=== PATIENT | male | born 1975 | race Caucasian/White ===

== ENCOUNTER → 2017-04-12 | Outpatient (CLI) | payer OTHER ==
[~2017-04-12] MED LIST: ASCO500T16 PO; CLZ750 PO
[2017-04-12 14:41] LABS: BASO % 0.5 %; BASO ABS # 0.04 K/uL (0-0.2); COMPLETE YES; EOS % 1.5 %; IG% 0.4 %; LYMPH % 14.6 %; MEAN CELL VOLUME 90.2 fL (80-100); MEAN CORPUSCULAR HEMOGLOBIN 30.5 pg (25-34); MEAN CORPUSCULAR HGB CONC 33.9 g/dl (32-36); MONO % 5.8 %; NEUT % 77.2 %; PLATELET COUNT 283 K/uL (130-400); RED BLOOD COUNT 4.88 M/uL (4.7-6.1); WHITE BLOOD COUNT 8.21 K/uL (4.8-10.8)
[2017-04-12 15:12] LABS: ALT/SGPT 40 U/L (12-78); BLOOD UREA NITROGEN 12 mg/dl (7-18); BUN/CREATININE RATIO 13.8 (10-20); C-REACTIVE PROTEIN < 0.29 mg/dl (0-0.29); CALCIUM 9.2 mg/dl (8.5-10.1); CARBON DIOXIDE 29 mmol/L (21-32); CHLORIDE 106 mmol/L (98-107); CREATININE 0.86 mg/dl (0.60-1.40); GLUCOSE 99 mg/dl (70-99); POTASSIUM 3.7 mmol/L (3.5-5.1); SODIUM 141 mmol/L (136-145)
[2017-04-12 15:15] LABS: ALB/GLOB RATIO 1.2 (0.9-2); ALKALINE PHOSPHATASE 115 U/L (45-117); AST/SGOT 37 U/L (15-37)
== END | disposition home or self-care (01) ==
LOC: C.LAB1850 14:02
PROVIDERS: ATTEND Registered Nurse
DX: K51.30 Ulcerative (chronic) rectosigmoiditis without complications (principal)

== ENCOUNTER → 2017-10-02 | Outpatient (CLI) | payer BC ==
[2017-10-02 14:36] LABS: BASO % 0.3 %; BASO ABS # 0.02 K/uL (0-0.2); EOS % 1.3 %; EOS ABS # 0.09 K/uL (0-0.5); HEMATOCRIT 44.5 % (42-52); HEMOGLOBIN 15.3 g/dL (14.0-18.0); IG# 0.01 K/uL (0.00-0.02); LYMPH % 13.2 %; MEAN CELL VOLUME 90.3 fL (80-100); MEAN CORPUSCULAR HGB CONC 34.4 g/dl (32-36); MONO ABS # 0.34 K/uL (0.11-0.59); NEUT % 80.1 %; NEUT ABS # 5.44 K/uL (1.4-6.5); PLATELET COUNT 266 K/uL (130-400); RED CELL DISTRIBUTION WIDTH CV 12.8 % (11.5-14.5); RED CELL DISTRIBUTION WIDTH SD 42.2 fL (36.4-46.3)
[2017-10-02 15:04] LABS: ALT/SGPT 36 U/L (12-78); BLOOD UREA NITROGEN 12 mg/dl (7-18); CALCIUM 8.7 mg/dl (8.5-10.1); CARBON DIOXIDE 29 mmol/L (21-32); CHOLESTEROL 152 mg/dl (0-200); GLUCOSE 88 mg/dl (70-99); POTASSIUM 3.7 mmol/L (3.5-5.1); SODIUM 140 mmol/L (136-145)
[2017-10-02 15:07] LABS: ALKALINE PHOSPHATASE 116 U/L (45-117); AST/SGOT 25 U/L (15-37); LDL CHOLESTEROL CALCULATED 102 mg/dl; TOTAL PROTEIN 7.1 gm/dl (6.4-8.2)
== END | disposition home or self-care (01) ==
LOC: C.LAB1850 13:39
PROVIDERS: ATTEND Registered Nurse
DX: R14.0 Abdominal distension (gaseous) (principal)

== ENCOUNTER → 2017-10-23 | Day surgery (SDC) | payer BC ==
[2017-10-08 13:05] VITALS: Ht 181.6 cm; Wt 102.7 kg
[~2017-10-23] VITALS: Ht 181.6 cm; Wt 102.7 kg
[~2017-10-23] MED LIST changes: +ASCO-63 PO; -ASCO500T16 PO; +CHOL20009 PO; +LIDOCAINE HCL 2% 2 ML VIAL (20MG/ML) ONE; +MIDAZOLAM HCL 1 MG/ML 2ML VIAL ONE; +MULT-506 PO; +ONDANSETRON INJ 2 MG/ML 2 ML VIAL ONE; +PROPOFOL IV EMULSION 10 MG/ML 20 ML VIAL IV ONE; +SODIUM CHLORIDE 0.9% 500ML 500 ML IV ONE
--- NOTE | 2017-10-23 10:18 | Endo History and Physical ---
History & Physical Date of Service: Oct 23, 2017. Chief Complaint: abd. pain and bloating,ulcerative proctosigmoiditis Referring Physician: Brina SORIA History of Present Illness 42 yo CM who presents for colonoscopy secondary to ulcerative proctosigmoiditis with worsening symptoms. Past Medical History Gastrointestinal Disorder, Other Past Surgical History Hx Cardiac Surgery: No Hx Internal Defibrillator: No Hx Pacemaker: No Hx Abdominal Surgery: No Hx of Implantable Prosthesis: No Hx Post-Op Nausea and Vomiting: No Hx Cancer Surgery: No Hx Thoracic Surgery: No Hx Orthopedic: No Hx Urinary Tract Surgery: No Family History None Social History Smoking Status: Never Smoker Hx Substance Use: No Hx Alcohol Use: Yes (OCCASIONALLY) Allergies Coded Allergies: Tetracyclines (Verified Allergy, Unknown, RASH, 10/08/17) Current Medications Reported Home Medications Medications Dose Route/Sig Max Daily Dose Days Date Category Vitamin D (Cholecalciferol) 2,000 Unit Tab 1 Tab PO DAILY 10/08/17 Reported Multivitamin (Multivitamins) Tab 1 Tab PO DAILY 10/08/17 Reported Vitamin C (Ascorbic Acid) 500 Mg Tab 1 Tab PO DAILY 10/08/17 Reported Colazal (Balsalazide) 750 Mg Cap 3 Tab PO TID 03/02/14 Reported Vital Signs Weight (Kilograms): 102.73 Height (Feet): 5 Height (Inches): 11.5 Date Time Temp Pulse Resp B/P (MAP) Pulse Ox O2 Delivery O2 Flow Rate FiO2 10/23/17 09:16 36.7 79 20 140/80 (100) 96 Room Air Physical Exam General Appearance: WD/WN, no apparent distress Respiratory/Chest: Auscultation: breath sounds normal Cardiovascular: Heart Auscultation: RRR Abdomen: Bowel Sounds: normal Inspection & Palpation: soft, non-distended, no tenderness, guarding & rebound Assessment and Plan Assessment: 42 yo CM who presents for colonoscopy secondary to ulcerative proctosigmoiditis with worsening symptoms. Plan: Proceed with colonoscopy.
--- NOTE | 2017-10-23 11:02 | GI REPORT ---
Procedure Date: 10/23/2017 10:25 AM Procedure: Colonoscopy Indications: Generalized abdominal pain, Disease activity assessment of chronic ulcerative proctosigmoiditis Medicines: Monitored Anesthesia Care Complications: No immediate complications. Estimated Blood Loss: Estimated blood loss: none. Procedure: Pre-Anesthesia Assessment: - Prior to the procedure, a History and Physical was performed, and patient medications and allergies were reviewed. The patient's tolerance of previous anesthesia was also reviewed. The risks and benefits of the procedure and the sedation options and risks were discussed with the patient. All questions were answered, and informed consent was obtained. Prior Anticoagulants: The patient has taken no previous anticoagulant or antiplatelet agents. ASA Grade Assessment: II - A patient with mild systemic disease. After reviewing the risks and benefits, the patient was deemed in satisfactory condition to undergo the procedure. After I obtained informed consent, the scope was passed under direct vision. Throughout the procedure, the patient's blood pressure, pulse, and oxygen saturations were monitored continuously. The scope was introduced through the anus and advanced to the terminal ileum. The colonoscopy was performed without difficulty. The patient tolerated the procedure well. The quality of the bowel preparation was good. The terminal ileum, ileocecal valve, appendiceal orifice, and rectum were photographed. Findings: The perianal and digital rectal examinations were normal. Localized mild inflammation characterized by erythema and loss of vascularity was found in the rectum and in the sigmoid colon. Biopsies were taken with a cold forceps for histology. Two sessile polyps were found in the rectum. The polyps were 4 to 6 mm in size. These polyps were removed with a hot snare. Resection and retrieval were complete. Non-bleeding internal hemorrhoids were found during retroflexion. The hemorrhoids were small. Impression: - Localized mild inflammation was found in the rectum and in the sigmoid colon secondary to proctosigmoid ulcerative colitis. Biopsied. - Two 4 to 6 mm polyps in the rectum, removed with a hot snare. Resected and retrieved. - Non-bleeding internal hemorrhoids. Recommendation: - Resume previous diet. - Continue present medications. - Repeat colonoscopy for surveillance based on pathology results. - Return to GI office as previously scheduled. River Meyers DO 10/23/2017 11:01:53 AM This report has been signed electronically. Note Initiated On: 10/23/2017 10:25 AM I attest to the content of the Intraoperative Record and orders documented therein, exceptions below
--- NOTE | 2017-10-23 11:20 | Anesthesiology Progress Note ---
Anesthesia Post Op Note Date & Time Oct 23, 2017 at 11:20 Vital Signs Pain Intensity: 0 Vital Signs Past 12 Hours Date Time Temp Pulse Resp B/P (MAP) Pulse Ox O2 Delivery O2 Flow Rate FiO2 10/23/17 11:14 75 20 119/76 (90) 98 Room Air 10/23/17 10:59 66 20 103/65 (78) 96 Room Air 10/23/17 09:16 36.7 79 20 140/80 (100) 96 Room Air Notes Mental Status: alert / awake / arousable, participated in evaluation Pt Amnestic to Procedure: Yes Nausea / Vomiting: adequately controlled Pain: adequately controlled Airway Patency, RR, SpO2: stable & adequate BP & HR: stable & adequate Hydration State: stable & adequate Anesthetic Complications: no major complications apparent
[2017-10-23 11:30] VITALS: BP 111/91; PULSE 59; O2SAT 100
--- NOTE | 2017-10-23 11:43 | Discharge Instructions ---
Endoscopy Patient Instructions Date / Procedure(s) Performed Oct 23, 2017. Colonoscopy Allergy Information Coded Allergies: Tetracyclines (Verified Allergy, Intermediate, RASH, 10/23/17) Discharge Date / Findings Oct 23, 2017. Rectal polyps Proctosigmoiditis s/p biopsies Medication Instructions OK to resume all medications today as prescribed Reported Home Medications Medications Dose Route/Sig Max Daily Dose Days Date Category Vitamin D (Cholecalciferol) 2,000 Unit Tab 1 Tab PO DAILY 10/08/17 Reported Multivitamin (Multivitamins) Tab 1 Tab PO DAILY 10/08/17 Reported Vitamin C (Ascorbic Acid) 500 Mg Tab 1 Tab PO DAILY 10/08/17 Reported Colazal (Balsalazide) 750 Mg Cap 3 Tab PO TID 03/02/14 Reported Provider Instructions Activity Restrictions - No exercising or heavy lifting for 24 hours. - Do not drink alcohol the day of the procedure. - Do not drive a car or operate machinery until the day after the procedure. - Do not make any important decisions or sign important papers in 24 hours after the procedure. Following Day: - Return to full activity which may include returning to work/school. Diet Start your diet with liquids and light foods (jello, soup, juice, toast). Then eat your usual diet if not nauseated. Treatment For Common After Affects For mild abdominal pain, bloating, or excessive gas: - Rest - Eat lightly - Lie on right side Follow-Up Information Follow-up with Brina SORIA as scheduled Anesthesia Information What You Should Know You have had a procedure that required some medicine to reduce anxiety and discomfort. This treatment is called moderate sedation. After receiving the treatment, you may be sleepy, but you will be able to breathe on your own. The effects of the treatment may last for several hours. Follow these instructions along with Activity/Diet recommendations noted above: * Do NOT do anything where dizziness or clumsiness would be dangerous. * Rest quietly at home today, then you can be up and about tomorrow. * Have a responsible person stay with you the rest of today. * You may have had an I.V. today. If so, you may take the dressing off later today. Recommendations Call your doctor if: * Trouble breathing * Continuous vomiting for more than 24 hours * Temperature above 101 degrees * Severe abdominal pain or bloating * Pain not relieved by pain medicine ordered * There is increased drainage or redness from any incision * A large amount of rectal bleeding greater than 2-3 tablespoons. (If you had a polyp/s removed or have hemorrhoids, a small amount of blood - from the rectum is to be expected.) * You have any unanswered questions or concerns. IN THE EVENT OF A SERIOUS EMERGENCY, GO TO THE NEAREST EMERGENCY ROOM Your discharge instructions were prepared by provider River Meyers. Patient Instructions Signature Page Triston Garcia Patient (or Guardian) Signature/Date: I have read and understand the instructions given to me by my caregivers. Caregiver/RN/Doctor Signature/Date: The above-named patient and/or guardian has received patient instructions on this date. + Original Patient Signature Page (only) stays with chart. Please make copy for patient.
== END | disposition home or self-care (01) ==
LOC: C.GI 08:51
PROVIDERS: ATTEND Internal Medicine
DX: K51.30 Ulcerative (chronic) rectosigmoiditis without complications (principal); K62.1 Rectal polyp; K64.8 Other hemorrhoids; Z88.1 Allergy status to other antibiotic agents; Z86.19 Personal history of other infectious and parasitic diseases

== ENCOUNTER → 2017-10-30 | Outpatient (CLI) | payer BC ==
[~2017-10-30] MED LIST changes: -LIDOCAINE HCL 2% 2 ML VIAL (20MG/ML) ONE; -MIDAZOLAM HCL 1 MG/ML 2ML VIAL ONE; -ONDANSETRON INJ 2 MG/ML 2 ML VIAL ONE; -PROPOFOL IV EMULSION 10 MG/ML 20 ML VIAL IV ONE; -SODIUM CHLORIDE 0.9% 500ML 500 ML IV ONE
== END | disposition home or self-care (01) ==
LOC: C.MAMM 09:48
PROVIDERS: ATTEND Registered Nurse
DX: Z82.62 Family history of osteoporosis (principal)

== ENCOUNTER → 2017-11-22 | Outpatient (CLI) | payer BC ==
--- NOTE | 2017-11-22 15:59 | DIAGNOSTIC IMAGING REPORT ---
ABDOMEN FOR HERNIA HISTORY: 42 years-old Male K42.9 Umbilical [id number] Abdominal herniaumbilical and abd wa acute periumbilical hernia COMPARISON: CT abdomen and pelvis 06/27/2016 TECHNIQUE: Multiple real-time sonographic images of the periumbilical tissues were obtained assessing grayscale appearance FINDINGS: There is a nonreducible fat-containing periumbilical hernia measuring up to 3.2 cm in greatest dimension. No bowel extension into the hernia sac. IMPRESSION: Nonreducible fat filled periumbilical hernia, diastases 3.2 cm. The above report was generated using voice recognition software. It may contain grammatical, syntax or spelling errors. Electronically signed by: Joshua Bruner M.D. 11/22/2017 3:58 PM Dictated Date/Time: 11/22/2017 3:56 PM
== END | disposition home or self-care (01) ==
LOC: C.ULTR 15:33
PROVIDERS: ATTEND Nurse Practitioner
DX: K42.9 Umbilical hernia without obstruction or gangrene (principal); K46.9 Unspecified abdominal hernia without obstruction or gangrene

== ENCOUNTER → 2017-12-04 | Outpatient (CLI) | payer BC | END | disposition home or self-care (01) | LOC: C.LABPVFM 17:02 | PROVIDERS: ATTEND Nurse Practitioner | DX: J02.9 Acute pharyngitis, unspecified (principal) ==

== ENCOUNTER → 2018-03-14 | Outpatient (CLI) | payer BC | END | disposition home or self-care (01) | LOC: C.LABPVFM 14:18 | PROVIDERS: ATTEND Registered Nurse | DX: Z12.5 Encounter for screening for malignant neoplasm of prostate (principal); E55.9 Vitamin D deficiency, unspecified; M85.80 Other specified disorders of bone density and structure, unspecified site ==